=== PATIENT | female | born 1955 | race Caucasian/White ===

== ENCOUNTER 2017-02-21 22:24 | Emergency (ER) | payer SELFPAY ==
[~2017-02-21] VITALS: Ht 157.5 cm; Wt 55.8 kg
[2017-02-21] MEDS ORDERED: ATORVASTATIN TAB 10MG (22:59)
[2017-02-21] MEDS ORDERED: MELOXICAM TAB 15MG (22:59)
[2017-02-21] MEDS ORDERED: ALENDRONATE SODIUM 70 MG TAB (22:59)
--- NOTE | 2017-02-22 00:10 | NUR ---
Pt to room, c/o left ankle swelling and pain s/p mech fall. Pt seen by MD. Xrays obtained. Tony wrap applied, pos CMS s/p application. Pt given crutch instruction. Pt demonstrated understanding of use. Pt stable for discharge per MD. Pt given ACi. Pt verbalized understanding of dc instructions. Pt wheeled out of er via w/c with route salesman and driver home.
[2017-02-22 00:16] VITALS: BP 120/68
== END 2017-02-22 00:17 | disposition home or self-care (01) ==
LOC: ER 22:26
DX: S93.402A Sprain of unspecified ligament of left ankle, initial encounter (principal); W01.0XXA Fall on same level from slipping, tripping and stumbling without subsequent striking against object, initial encounter; Y93.89 Activity, other specified; Y99.8 Other external cause status; Y92.89 Other specified places as the place of occurrence of the external cause
CPT/HCPCS: 73610; 99284; A4663

== ENCOUNTER 2018-06-28 10:42 | Emergency (ER) | payer OTHER ==
[~2018-06-28] VITALS: Ht 157.5 cm; Wt 55.8 kg
[~2018-06-28 10:42] MED LIST: ALENDRONATE SODIUM 70 MG TAB; ATORVASTATIN TAB 10MG; MELOXICAM TAB 15MG
[2018-06-28] MEDS ORDERED: HYDROMORPHONE 1 MG/1 ML DISP.SYRIN IM ONE (11:15)
[2018-06-28] MEDS ORDERED: KETOROLAC TROMETHAMINE 30 MG INJ IM ONE (11:15)
[2018-06-28] MEDS ORDERED: KETOROLAC TROMETHAMINE 30 MG INJ ONE (11:15)
[2018-06-28] MEDS ORDERED: HYDROMORPHONE 1 MG/1 ML DISP.SYRIN ONE (11:16)
--- NOTE | 2018-06-28 11:49 | NUR ---
Patient discharged to home in stable conditon. Written and verbal after care instructions given. Patient verbalizes understanding of instructions.
== END 2018-06-28 11:50 | disposition home or self-care (01) ==
LOC: ER 10:42
DX: M43.6 Torticollis (principal)
CPT/HCPCS: 96372 ×2; 99284; J1170; J1885; A4663